=== PATIENT | male | born 1980 | race African-American/Black ===

== ENCOUNTER 2022-12-19 20:31 | Emergency (ER) | payer MEDICAID ==
[~2022-12-19] VITALS: Ht 200.7 cm; Wt 102.0 kg
[2022-12-19] MEDS ORDERED: NAPR-56 PO (22:07)
[2022-12-19 22:32] VITALS: BP 144/96; PULSE 79; RESP 17; TEMP 98; O2SAT 100
== END 2022-12-19 22:33 | disposition home or self-care (01) ==
LOC: ER 20:32
DX: N53.12 Painful ejaculation (principal); Z59.00 Homelessness unspecified; Z79.899 Other long term (current) drug therapy
CPT/HCPCS: 99282